=== PATIENT | female | born 1935 | race Caucasian/White ===

== ENCOUNTER 2023-12-28 10:00 | Day surgery (SDC) | payer MEDICARE, MEDICAID ==
[2023-12-27 12:17] LABS: BASOPHILS # (AUTO) 0.1 X10'3 (0-0.2); BASOPHILS % (AUTO) 1.2 % (0-1); EOSINOPHILS # (AUTO) 0.1 X10'3 (0-0.9); EOSINOPHILS % (AUTO) 1.8 % (0-6); HEMATOCRIT 34.8 % (35.0-45.0); HEMOGLOBIN 11.3 g/dl (12.0-16.0); LYMPHOCYTES # (AUTO) 1.5 X10'3 (1.1-4.8); MEAN CORPUSCULAR HEMOGLOBIN 27.4 PG (27.0-31.0); MEAN CORPUSCULAR HGB CONC 32.3 g/dL (33.0-36.5); MEAN CORPUSCULAR VOLUME 84.8 FL (78-98); MEAN PLATELET VOLUME 8.1 FL (7.4-10.4); MONOCYTES # (AUTO) 0.3 X10'3 (0-0.9); MONOCYTES % (AUTO) 6.8 % (2-12); NEUTROPHILS # (AUTO) 3.1 X10'3 (1.8-7.7); NEUTROPHILS % (AUTO) 61.2 % (42-75); PLATELET COUNT 257 X10'3 (140-440); RED BLOOD COUNT 4.11 X10'6 (4.20-5.60); RED CELL DISTRIBUTION WIDTH 15.8 % (11.5-14.5); WHITE BLOOD COUNT 5.1 X10'3 (4.5-11.0)
[2023-12-27 12:28] LABS: ALBUMIN 3.8 G/DL (3.4-5.0); ANION GAP 7 (8-16); BLOOD UREA NITROGEN 24 MG/DL (7-18); BUN/CREATININE RATIO 19.4 (10.0-20.0); CALCIUM 8.6 MG/DL (8.5-10.1); CHLORIDE 105 MMOL/L (99-107); CREATININE 1.24 MG/DL (0.40-0.90); GLUCOSE 103 MG/DL (70-104); POTASSIUM 5.2 MMOL/L (3.5-5.1); SODIUM 140 MMOL/L (135-145); TOTAL CARBON DIOXIDE 27.7 MMOL/L (24-32); eGFR 41 ML/MIN
[2023-12-27 13:35] LABS: APTT 25 SECONDS (22-32); PROTHROMBIN TIME 10.4 SECONDS (9.0-12.0)
[2023-12-28] VITALS (10 sets, daily range): BP systolic 102–146; BP diastolic 51–73; PULSE 99–111; RESP 10–12; TEMP 98.2; O2SAT 93–98
[~2023-12-28 10:00] MED LIST: DOCU-148 PO; LIDOcaine 1% (10mg/ml) 2ml vial ONE; LISI20TA28 PO; METH500T PO; VENL150C58 PO; heparin 1,000unit/ml 10ml vial 10 ML ONE; iohexol 350 MG/ML 50ML vial IV ONE; iohexol 350MG/ML 100ml bottle IV ONE; nitroGLYCERIN 500mcg/5mL D5W 5 ML IV ONE; verapamil 2.5 mg/ml inj IV ONE
[2023-12-28] MEDS ORDERED: DEXTROSE 5% IV SCH (10:20)
[2023-12-28] MEDS ORDERED: WATER IV SCH (10:20)
[2023-12-28] MEDS ORDERED: SODIUM BICARBONATE IV SCH (10:20)
[2023-12-28] MEDS ORDERED: ACET-812 PO (10:57)
[2023-12-28] MEDS ORDERED: midazolam 1 mg/ML 2ml injection ONE (11:06)
[2023-12-28] MEDS ORDERED: fentaNYL/PF 50MCG/1 ML 2ML syringe ONE (11:06)
[2023-12-28] MEDS: diphenhydrAMINE 25mg capsule PO PRN (11:20)
[2023-12-28] MEDS: normal saline 1,000 ML IV SCH (11:20)
[2023-12-28] MEDS: LORazepam 0.5 MG tablet PO PRN (11:20)
[2023-12-28] MEDS: sodium bicarbonate 1meq/ml inj 150 ML in dextrose 5%-water 1,000 ML IV SCH (11:20)
[2023-12-28] MEDS ORDERED: LIDOcaine 1% 30ml preserv. free vial ONE (12:38)
[2023-12-28 13:12] LABS: ISTAT HGB ART 10.9 g/dl (12.0-16.0); ISTAT Hct ART 32 %PCV (35-45); ISTAT O2 SATURATION ARTERIAL 90 % (95-98); ISTAT SOURCE ART
[2023-12-28] MEDS ORDERED: hydrALAZINE 20mg/ml inj. ONE (13:17)
[2024-01-02 15:33] LABS: ISTAT HGB MIX 10.9 g/dl (12.0-16.0); ISTAT Hct MIX 32 %PCV (35-45); ISTAT O2 SATURATION MIX VENOUS 60 % (60-80); ISTAT SOURCE VEN
== END 2023-12-28 18:00 | disposition home or self-care (01) ==
LOC: SSTAY O 10:00
PROVIDERS: ATTEND Internal Medicine Cardiovascular Disease
DX: I35.0 Nonrheumatic aortic (valve) stenosis (principal); I25.10 Atherosclerotic heart disease of native coronary artery without angina pectoris; I10 Essential (primary) hypertension; E78.5 Hyperlipidemia, unspecified; Z87.442 Personal history of urinary calculi; Z79.899 Other long term (current) drug therapy; Z90.49 Acquired absence of other specified parts of digestive tract; Z90.710 Acquired absence of both cervix and uterus; Z98.890 Other specified postprocedural states; Z88.8 Allergy status to other drugs, medicaments and biological substances; Z82.49 Family history of ischemic heart disease and other diseases of the circulatory system; Z80.9 Family history of malignant neoplasm, unspecified
CPT/HCPCS: 36415; 80048; 82803; 84132; 85014; 85025; 85610; 85730; 93005; 93460; 99152; 99153; A6258; C1725; C1751; C1760; C1769; C1894; J0360; J1644; J2003; J2250; J3010; J3490; J7030; J7070; Q0163; Q9967; Z7610; 76937

== ENCOUNTER 2024-02-20 15:31 | Outpatient (CLI) | payer MEDICARE, MEDICAID ==
[~2024-02-20 15:31] MED LIST changes: +ACET-812 PO; -DOCU-148 PO; -LIDOcaine 1% (10mg/ml) 2ml vial ONE; -METH500T PO; -heparin 1,000unit/ml 10ml vial 10 ML ONE; -iohexol 350 MG/ML 50ML vial IV ONE; -iohexol 350MG/ML 100ml bottle IV ONE; -nitroGLYCERIN 500mcg/5mL D5W 5 ML IV ONE; -verapamil 2.5 mg/ml inj IV ONE
[2024-02-20 16:27] VITALS: PULSE 103; RESP 15; O2SAT 97
== END 2024-02-20 23:59 | disposition home or self-care (01) ==
LOC: RT 15:31
PROVIDERS: ATTEND Student in an Organized Health Care Education/Training Program
DX: J45.20 Mild intermittent asthma, uncomplicated (principal)
CPT/HCPCS: 94010; 94729; 94760

== ENCOUNTER 2024-07-23 10:47 | Outpatient (CLI) | payer MEDICARE, MEDICAID ==
[2024-07-23 11:24] LABS: BASOPHILS # (AUTO) 0.1 X10'3 (0-0.2); BASOPHILS % (AUTO) 0.9 % (0-1); EOSINOPHILS # (AUTO) 0.1 X10'3 (0-0.9); HEMATOCRIT 33.8 % (35.0-45.0); HEMOGLOBIN 11.3 g/dl (12.0-16.0); LYMPHOCYTES # (AUTO) 1.6 X10'3 (1.1-4.8); MEAN CORPUSCULAR HEMOGLOBIN 28.3 PG (27.0-31.0); MEAN CORPUSCULAR HGB CONC 33.5 g/dL (33.0-36.5); MEAN CORPUSCULAR VOLUME 84.6 FL (78-98); MEAN PLATELET VOLUME 8.1 FL (7.4-10.4); MONOCYTES # (AUTO) 0.3 X10'3 (0-0.9); MONOCYTES % (AUTO) 5.2 % (2-12); NEUTROPHILS # (AUTO) 3.8 X10'3 (1.8-7.7); NEUTROPHILS % (AUTO) 64.9 % (42-75); PLATELET COUNT 245 X10'3 (140-440); RED CELL DISTRIBUTION WIDTH 14.9 % (11.5-14.5); WHITE BLOOD COUNT 5.8 X10'3 (4.5-11.0)
[2024-07-23 11:38] LABS: APTT 25 SECONDS (22-32); PROTHROMBIN TIME 10.3 SECONDS (9.0-12.0)
[2024-07-23 11:48] LABS: ALANINE AMINOTRANSFERASE 13 U/L (12-78); ALBUMIN 3.8 G/DL (3.4-5.0); ALBUMIN/GLOBULIN RATIO 1.2 (1.1-1.5); ALKALINE PHOSPHATASE 104 IU/L (46-116); ANION GAP 9 (8-16); ASPARTATE AMINO TRANSFERASE 18 U/L (10-37); BILIRUBIN,TOTAL 0.4 MG/DL (0.1-1.0); BLOOD UREA NITROGEN 19 MG/DL (7-18); BUN/CREATININE RATIO 14.8 (10.0-20.0); CALCIUM 8.6 MG/DL (8.5-10.1); CHLORIDE 108 MMOL/L (99-107); CREATININE 1.28 MG/DL (0.40-0.90); GLUCOSE 89 MG/DL (70-104); POTASSIUM 5.1 MMOL/L (3.5-5.1); PRO BRAIN NATRIURETIC PEPTIDE 244 PG/ML (0-450); SODIUM 142 MMOL/L (135-145); TOTAL CARBON DIOXIDE 24.9 MMOL/L (24-32); TOTAL PROTEIN 6.9 G/DL (6.4-8.2); eGFR 39 ML/MIN
--- NOTE | 2024-07-23 12:17 | VASCULAR REPORT ---
Indication: Preoperative Technique: Real-time ultrasound images of the neck vessels with smith-scale, color and wave Doppler we re obtained. Comparison: None Findings: Gqee-mx-uieewtva atherosclerotic plaque. The following peak systolic velocities were recorded in cm/sec: Right internal carotid: 89 Right common carotid: 86 Right external carotid: 67 Right internal/common carotid ratio: 1 Left internal carotid: 75 Left common carotid: 58 Left external carotid: 53 Left internal/common carotid ratio: 1.3 Right vertebral artery: Patent with normal antegrade direction of flow. Left vertebral artery: Patent with normal antegrade direction of flow. Impression: 1. No hemodynamically significant stenosis by velocity criteria. 2. Fwcz-ks-kpbujbok atherosclerotic plaque.
--- NOTE | 2024-07-23 12:24 | RADIOLOGY REPORT ---
DI CHEST,TWO VIEWS, HISTORY: TAVR COMPARISON: None None TECHNICAL DATA: 1 view of the chest was obtained. FINDINGS: Lines and tubes: None Cardiomediastinal silhouette: normal Pulmonary vasculature: normal Lung expansion: normal Lung airspace: normal Lung interstitium: normal Pleura: normal Pneumothorax: no Bones: Right shoulder hardware is seen. Other: Right hemidiaphragm eventration is seen. IMPRESSION: No acute intrathoracic abnormality.
--- NOTE | 2024-07-24 17:15 | RADIOLOGY REPORT ---
Procedure: CT CTA TAVR Reason for study/Clinical History: Chest pain, evaluate for dissection. Comparison Study: None Exam Date: 07/23/2024 01:07 PM TECHNIQUE: Multiplanar reformatted images were generated from volumetric data acquired on a multidetector CT [facility]. Cardiac gating was utilized. Arterial phase images were obtained through the chest, abdomen and pelvis following intravenous administration of contrast material. 100 mL visipaque [address] dose reduction techniques were utilized. 3-D reconstructions were performed on an independent work station. Radiation Dose Information: CT Dose: CTDI volume is 65 mGy. Dose-length product is 2417 mGy*cm FINDINGS: Vascular: Aortic measurements: Aortic annulus: 26.4 x 21.3 mm Sinus of valsalva: right cusp 31.4 mm, left cusp 30.3 mm, non-coronary cusp 30.8 mm Right coronary distance: 13.6 Left coronary distance: 10.3 ST junction 25.9 mm Ascending aorta 33.6 mm Aortic arch 26 mm Descending aorta 26 mm Aortic hiatus 22 mm Upper abdominal aorta 20 mm Minimal abdominal aorta 13 mm Right common iliac 9.37 mm, tortuosity index 1.14 Left common iliac 8.72 mm, tortuosity index 1.09 There is normal caliber of aorta. No aortic dissection. Aortic arch anatomy is conventional. There is conventional coronary artery anatomy. Scattered calcified atherosclerotic plaque. No central pulmonary embolism. There is normal dimension of the main pulmonary artery. Heart is normal. There are no intracardiac filling defects. Trace pericardial effusion. Mediastinum: There is no significant intrathoracic or axillary lymphadenopathy by CT size criteria. Lungs: Atelectasis and scarring in the lung bases. Pleura: No effusion or pneumothorax. Chest wall: No acute abnormality. Moderate size sliding-type hiatal hernia. Abdomen and Pelvis: Liver: Normal in appearance. Gallbladder: Surgically absent Spleen: Normal in appearance. Pancreas: Cyst in the uncinate process of the pancreas measuring up to 14 mm. Adrenals: Normal in appearance. Kidneys: Calculus in the right renal pelvis measuring up to 12 mm associated with iice-ay-nbchtwsn ri ght hydronephrosis. Bowel: Nonspecific gaseous distention of bowel. Peritoneum: Free fluid in the pelvis. Lymph nodes: Subcentimeter retroperitoneal and chain lymph nodes are noted. Pelvic structures: No pelvic mass. Bones: Normal in appearance. IMPRESSION: 1. TAVR planning with vascular measurements as described above. 2. Moderate size sliding-type hiatal hernia. Cysts in the uncinate process of the pancreas. This can be further evaluated with MRI of the abdomen with contrast. Mildly obstructing calculus in the right renal pelvis associated with zvne-gk-gkkvziop right hydronephrosis. Urology evaluation is recommende d. Nonspecific gaseous distention of bowel. Nonspecific lymphadenopathy. Clinical correlation and con tinued follow-up is recommended. HS:Y
== END 2024-07-23 23:59 | disposition home or self-care (01) ==
LOC: RAD 10:47
PROVIDERS: ATTEND Internal Medicine Cardiovascular Disease
DX: Z01.818 Encounter for other preprocedural examination (principal); I25.10 Atherosclerotic heart disease of native coronary artery without angina pectoris; I35.0 Nonrheumatic aortic (valve) stenosis; R06.02 Shortness of breath; Q79.1 Other congenital malformations of diaphragm; J98.11 Atelectasis; K44.9 Diaphragmatic hernia without obstruction or gangrene; K86.2 Cyst of pancreas; J98.4 Other disorders of lung; I70.90 Unspecified atherosclerosis; N13.2 Hydronephrosis with renal and ureteral calculous obstruction
CPT/HCPCS: 36415; 71046; 71275; 74174; 75572; 80053; 83880; 85025; 85610; 85730; 93880; Q9967

== ENCOUNTER 2024-07-24 14:48 | Outpatient (CLI) | payer MEDICARE, MEDICAID ==
[~2024-07-24] VITALS: Ht 152.4 cm; Wt 75.2 kg
[~2024-07-24 14:48] MED LIST changes: +IODIXANOL 320 MG/ML INFUS..BTL 100ML IV ONE
[2024-07-24 15:05] VITALS: BP 139/76; PULSE 93; RESP 14; TEMP 95.3; O2SAT 94
--- NOTE | 2024-07-24 19:33 | CONSULTATION REPORT ---
History of Present Illness Providers to CC CC: BRITTANY TERRELL MD ~ Refering MD: Dr. Terrell History of Present Illness A Very pleasant 89yo woman with Hypertension, Breast cancer(status post radiation), Severe Symptomatic Aortic Stenosis here to be evaluated in the TAVR clinic. 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 She currently resides in a Condo and states that over the last one year she has noticed increased shortness of breath. She used to be able to walk up the stairs to her home without issues, now has to stop detention to catch her breath. 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 She denies any chest pain, syncope, dizziness/lightheadedness, bleeding, LE e juan. Allergies: Coded Allergies: cephalexin (Verified Allergy, Intermediate, redness and swelling, 02/06/23) Active prescriptions Tylenol Lisinopril 20mg QD Venlafaxine ER Home Medications Home Medications Active Reported Tylenol Extra Strength (Acetaminophen) 500 Mg Tablet 1 Tablet PO Venlafaxine Hcl Er (Venlafaxine Hcl) 150 Mg Cap.sr.24h 1 Cap PO DAILY with food Lisinopril 20 Mg Tablet 1 Tab PO DAILY Past Medical History Medical History Comment 1. Severe, Symptomatic Aortic Stenosis 2. Hypertensive heart disease 3. Breast CA with prior radiation, ~ 2017 Past Surgical History Surgical History Comment Denies any prior heart/lung surgeries Past Family History Family History: Patient reports no known family medical history. Past Social History Social History Comment Denies tobacco or alcohol abuse Physical Exam Last Vital Signs Recorded: Temperature: 95.3, Source: Temporal, Heart Rate: 93, Respiratory Rate: 14, BP: 139/76, Pulse Oximetry: 94, Weight: 75.200 General Appearance: alert, no apparent distress Respiratory: lungs clear Cardiovascular: regular rate, rhythm, systolic murmur (III/ SM RUSB/LUSB) Peripheral Pulses: 2+ radial (R), 2+ radial (L) Gastrointestinal: bowels sounds present Extremities: no edema Neurologic: oriented x4 Psychiatric: normal mood/affect Review of Systems ROS ROS Comments: A 14-point review of systems is positive as above. The rest of the review of systems has been done and found to be unrevealing. Results Results/Orders Results/Orders Hg 11.3 HCt 33.8, Cr 1.28 Echocardiogram: LVEF 70%, PV 4.0 m/s, MG 39 mmHg, NOEIM 0.93cm2. Mild AI. Coronary Angiogram: No significant obstructive CAD Carotid Ultrasound: No obstructive carotid disease EKG: Sinus tach, QRS 76ms CT TAVR: Large Caliber vessels amenable to transfemoral transcatheter aortic valve replacement. Sinuses are large enough, left coronary artery ostium is 9mm above the annulus. Assessment/Plan Problems/Diagnosis: (1) Aortic stenosis Assessment & Plan: A Very pleasant 89yo woman with Hypertension, Breast cancer(status post radiation), Severe Symptomatic Aortic Stenosis here to be evaluated in the TAVR clinic. She has severe, symptomatic aortic stenosis with NYHA Class III symptoms of dyspnea on exertion. Patient appears to be a good candidate for a transfemoral transcatheter aortic valve replacement She does have a low left coronary artery, 9mm above the annulus, however, the left sinus is 32mm with an STJ of [id number](18mm above the annulus). --Will plan for a 23mm valve via either femoral approach(higher left PRECISION GRINDER bifurcation), to be scheduled soon. Dr. Terrell, We thank you for allowing us the opportunity to help with the patient. They will see you back in the office shortly. RAY GUERRERO MD Jul 24, 2024 19:33
== END 2024-07-24 23:59 | disposition home or self-care (01) ==
LOC: TAVR 14:48
PROVIDERS: ATTEND Internal Medicine Cardiovascular Disease
DX: I35.0 Nonrheumatic aortic (valve) stenosis (principal); R06.02 Shortness of breath; I65.29 Occlusion and stenosis of unspecified carotid artery
CPT/HCPCS: Q9967

== ENCOUNTER 2024-08-28 07:23 | Inpatient (IN) | payer MEDICARE, MEDICAID ==
--- NOTE | 2024-08-22 14:22 | ELECTROCARDIOGRAPH REPORT ---
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 ROBERTO Cameron Measurements Intervals [place] Rate: 77 P: 7 PA: 146 QRS: 23 QRSD: 80 T: 8 QT: 312 QTc: 353 Interpretive Statements Sinus rhythm Electronically Signed On 08-23-2024 12:31:[address] ROBERTO Cameron Please click the below link to view image of tracing.
--- NOTE | 2024-08-22 14:34 | RADIOLOGY REPORT ---
CHEST RADIOGRAPH Indication: TAVR SOB Technique: Frontal and lateral view of the chest was obtained Comparison: DI CHEST,TWO VIEWS on DOS: 07/23/24 FINDINGS: Lines and Tubes: None Lungs: Clear Pleura: No effusion. No pneumothorax. Cardiomediastinal contours: Large hiatal hernia Bones: Unremarkable IMPRESSION: Large hiatal hernia.
[2024-08-22 14:48] LABS: LEUKOCYTE ESTERASE ,URINE MODERATE (Neg); MEAN PLATELET VOLUME 9.0 FL (7.4-10.4); NITRITES, URINE POSITIVE (Neg); OCCULT BLOOD,URINE LARGE (Neg); PRE OP PLATELET COUNT 207 X10'3 (140-440)
[2024-08-22 14:50] LABS: PRE OP HEMATOCRIT 33.1 % (35.0-45.0); PRE OP WHITE BLOOD COUNT 4.8 10'3 (4.8-10.8); RED CELL DISTRIBUTION WIDTH 15.1 % (11.5-14.5); UA COLLECTION TYPE NON-SPECIFIED
[2024-08-22 14:58] LABS: PRE OP INR 1.0 INR; PRE OP PARTIAL THROMB. TIME 25.0 SECONDS (22-32); PRE OP PROTIME 10.3 SECONDS (9.0-12.0)
[2024-08-22 15:01] LABS: CREATININE 1.23 MG/DL (0.40-0.90); PRE OP ALT 17 U/L (30-65); PRE OP ANION GAP 5 (8-16); PRE OP AST 16 U/L (10-37); PRE OP BILIRUB, TOTAL 0.4 MG/DL (0.0-1.0); PRE OP GLUCOSE 87 MG/DL (70-104); PRE OP POTASSIUM 5.0 MMOL/L (3.4-5.1); PRE OP SODIUM 138 MMOL/L (135-145); TOTAL CARBON DIOXIDE 29.3 MMOL/L (24-32); eGFR 41 ML/MIN
[2024-08-22 15:02] LABS: PRE OP HEMOGLOBIN 11.0 g/dL (12.0-16.0)
[2024-08-22 15:15] LABS: SQUAMOUS EPITHELIAL CELL,UR MODERATE /LPF (FEW); WBC CLUMPS,URINE MODERATE /HPF (NEGATIVE)
[~2024-08-28] VITALS: Ht 152.4 cm; Wt 75.8 kg
[2024-08-28] VITALS (16 sets, daily range): BP systolic 90–144; BP diastolic 49–87; PULSE 72–89; RESP 13–18; TEMP 97.1–98; O2SAT 91–100
[2024-08-28] MEDS: nitroPRUSSIDE (NIPRIDE) (200MCG/ML) 100ML Drip IV SCH (05:30)
[2024-08-28] MEDS: phenylephrine inj 50 MG in normal saline 250ml IV solN IV SCH (05:30)
[2024-08-28] MEDS: DOCUMENT DATE & TIME OF BETA-BLOCKER PO ONE (05:30)
[~2024-08-28 07:23] MED LIST changes: +CARV6.253 PO; -IODIXANOL 320 MG/ML INFUS..BTL 100ML IV ONE; +ROSU40TA PO; +SULF1TAB49 PO; +ondansetron/PF 4mg/2ml inj IV PRN; +protamine sulfate 10mg/ml inj. ONE
[2024-08-28] MEDS: ringers solution, lacted 1,000 ML IV SCH ×2 (08:13→08:50)
[2024-08-28] MEDS: VANCOMYCIN/H2O 1.5g/300mL PB 300 ML IV ONE (08:13)
[2024-08-28] MEDS ORDERED: morphine 4 MG/ML inj SYRINge IV PRN (08:50)
[2024-08-28] MEDS ORDERED: labetalol 20mg/4ml (5mg/ml) syringe IV PRN ×2 (08:50→11:40)
[2024-08-28] MEDS ORDERED: hydrALAZINE 20mg/ml inj. IV PRN ×2 (08:50→11:40)
[2024-08-28] MEDS ORDERED: LIDOcaine 1% 30ml preserv. free vial ONE (10:05)
[2024-08-28] MEDS ORDERED: heparin 1,000 UNITS/NS 500ml 1,500 ML ONE (10:05)
[2024-08-28] MEDS ORDERED: non-formulary drug (Acetaminophen (Tylenol Extra Strength) 1 TABLET) PO PRN (10:25)
[2024-08-28] MEDS ORDERED: morphine 10mg/ml inj. ONE (10:35)
[2024-08-28] MEDS ORDERED: LIDOcaine 1%/PF 5ML 10 MG/ML VIAL ONE (10:41)
[2024-08-28] MEDS ORDERED: propofol inj 20 ML IV ONE (10:41)
[2024-08-28] MEDS ORDERED: heparin 1,000unit/ml 10ml vial 10 ML ONE (10:42)
[2024-08-28] MEDS ORDERED: desflurane 240ml liquid inh. IH ONE (10:48)
[2024-08-28] MEDS ORDERED: ePHEDrine 50MG/ML INJ. ONE (11:09)
[2024-08-28] MEDS ORDERED: potassium Cl 20mEq/100mL bag 100 ML IV PRN (11:40)
[2024-08-28] MEDS ORDERED: potassium Cl 20 mEq SR tablet PO PRN (11:40)
[2024-08-28] MEDS ORDERED: magnesium sulf-water 2g/50mL 50 ML IV PRN (11:40)
[2024-08-28] MEDS ORDERED: ondansetron/PF 4mg/2ml inj IV PRN (11:40)
[2024-08-28] MEDS ORDERED: potassium CL 10mEq/100ml bag 100 ML IV PRN (11:40)
[2024-08-28] MEDS ORDERED: ALPRAZolam 0.25mg tablet PO PRN (11:40)
[2024-08-28] MEDS ORDERED: potassium Cl 40MEQ/1/2NS 520ml 520 ML IV PRN (11:40)
[2024-08-28] MEDS ORDERED: pantoprazole 40mg Tablet.DR PO PRN (11:40)
[2024-08-28] MEDS ORDERED: potassium Cl 40MEQ/270ML bag 250 ML IV PRN (11:40)
[2024-08-28] MEDS ORDERED: magnesium sulf-water 4G/100mL 100 ML IV PRN (11:40)
[2024-08-28] MEDS ORDERED: docusate sod 100mg capsule PO PRN (11:40)
[2024-08-28] MEDS ORDERED: HYDROcodone/acetaminophen 5mg/325mg tablet PO PRN (11:40)
--- NOTE | 2024-08-28 11:45 | OPERATIVE REPORT ---
Operative Report Providers to CC CC: BRITTANY TERRELL MD ~ Date of Procedure: Aug 28, 2024 Pre-Operative Diagnosis: Severe Aortic Stenosis Post-Operative Diagnosis SAME as PRE-Op Procedure Performed 1. Ultrasound-guided access, bilateral femoral vessels. 2. Bilateral femoral angiography. 3. Ascending aortography. 4. Temporary transvenous pacer to the RV apex. 5. Balloon Aortic Valvuloplasty with an 18mm balloon 6. Placement of a 23+1 mm Rodriguez S3 Resilia valve. Surgeon: Ray Abarca MD Critical Care Physician Assistant MD Dr. Raymon Wolff MD Anesthesiologist: Adriel Villela Type of Anesthesia: Other Findings: Severe Aortic Stenosis Complications None Prosthetics\Implants used: Rodriguez 23+1mm S3 Resilia Estimated Blood Loss: Minimal Specimen Removed: None Description of Procedure: The patient was brought to the labor commissioner in a fasting state. They underwent MAC anesthesia. Ultrasound was used to guide access to the bilateral femoral vessels, 7-Slovenian sheath, left femoral artery, 6-Slovenian sheath, right femoral artery and left femoral vein. Bilateral femoral angiograms were obtained. Heparin was given to maintain an ACT over 250 seconds. A single Perclose devices was placed on the right. We upsized to an 8-Slovenian sheath. Two pigtail catheters placed in the ascending aorta. Ascending aortography done to determine the angle of deployment. Temporary transvenous pacer to the RV apex and confirmed capture. We upsized an 8-Slovenian sheath to a 14-Slovenian Rodriguez eSheath on the right. We crossed the aortic valve using a straight stiff exchange length Terumo wire supported by a 6-Slovenian AL1 catheter. LV AO pressures were recorded. A CancerIQ extra support wire was placed in the left ventricle. Next, an 18mm balloon was brought into position and under rapid v entricular pacing, it was inflated. Subsequently, A 23(+1) mm Rodriguez S3 Resilia valve was brought to position and under rapid right ventricular pacing was deployed. Post-procedure, there was no AI and no residual . Guidewires and balloons were removed at this time. The temporary pacer was removed. The 14- Slovenian Rodriguez eSheath was removed and the Perclose device tied with adequate hemostasis. The arterial sheath on the left was removed and a single Perclose tied. The venous sheath on the left was removed and a single Angioseal used for hemostasis. Protamine was given to reverse the effects of heparin. The patient was stable post-procedure. Good pulses in the legs and no evidence of bleeding, transferred to the PACU in stable condition. HEMODYNAMICS: Pre: LV: 141/15 mmHg LVEDP: 26mmHg Ao: 109/55, MAP 75mmHg Post: LV: 123/22 mmHg LVEDP: 32 mmHg Ao: 123/56, MAP 83mmHg RESULTS: 1. Successful balloon aortic valvuloplasty with an 18 mm balloon. 2. Successful placement of a 23 (+1)mm Rodriguez S3 Resilia valve, right transfemoral approach, two perclose devices. ASA 81mg QD 3. Hypertension: Resume if blood pressure remains stable 4. Acute on chronic diastolic heart failure, LVEDP 26mmHg Patient will be watched in the recovery area until stable, then transferred to telemetry at that time. RAY ABARCA MD Aug 28, 2024 11:45
[2024-08-28] MEDS ORDERED: LIDOCAINE 2%/EPI 1:100,000 inj. Multi-dose 20 ML VIAL ONE (11:51)
--- NOTE | 2024-08-28 12:09 | ELECTROCARDIOGRAPH REPORT ---
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 ROBERTO Cameron Measurements Intervals [place] Rate: 83 P: 63 [place]: 158 QRS: -35 QRSD: 149 T: 97 QT: 423 QTc: 497 Interpretive Statements Sinus rhythm Left bundle branch block Electronically Signed On 08-29-2024 17:31:[address] ROBERTO Cameron Please click the below link to view image of tracing.
[2024-08-28] MEDS: normal saline 1000ml 1,000 ML IV SCH (12:18)
[2024-08-28] MEDS: sod chloride 0.9% 10ml flush syringe IV SCH (16:30)
--- NOTE | 2024-08-28 16:53 | CARDIOLOGY REPORT ---
APPROVED REPORT EXAM: Focused, limited intraprocedural transthoracic 2D, spectral and color flow Doppler echocardiogr am during TAVR deployment. Patient Location: [facility] Blood Pressure: 137/68 mmHg Heart Rate: 81 bpm Rhythm: SINUS Indications SEVERE AORTIC STENOSIS 18 mm TRUE balloon pre-dilatation 23 mm Rodriguez Fina 3 Ultra RESILIA Bioprosthetic TAVR CORONARY ARTERY DISEASE HYPERTENSION Quarryman: Allan Cameron MD / Interventionalist: Dayanna Abarca MD and Xavi Stephens MD. / Surgeon: America Baldwin MD. / Device rep: Torin Montemayor ELS Previous echo: 07/08/24 AD BVC (EF 70-75%, NOEMI: 0.93, pkV 4.0, grad 65/39, LVOT 2.2, tr TR, tr PI, mMR , Enedelia) LEFT VENTRICLE Small LV size and function. At least moderate concentric hypertrophy. LVEF is 70-75%. RIGHT VENTRICLE RV is normal size and function. RVSP is estimated at 29 mmHg. ATRIA LA appears at least moderately dilated. AORTIC VALVE Trileaflet AV appears severely calcified with significant stenosis demonstrated by reduced excursion and increased transvalvular and ascending aorta turbulance. NOEMI is measured at 0.6 cmsq. Peak / mean gradients of 88 / 46 mmHG. Peak velocity is measured at 4.67 m/sec. PRE DILATATION: 18 mm TRUE BAV ba randall. POST DEPLOYMENT (LOOP: 57): 23 mm Rodriguez Fina 3 Ultra Resilia bioprosthetic TAVR appears we ll seated with normal function. Trace (1+) paravalvular leak present at 12 o'clock and trace at 7 o'c lock in TTE SAX BASE. NOEMI is measured at 3.05 cmsq. Peak / mean gradients of 14 / 7 mmHG. Peak veloci ty is measured at 1.90 m/sec. MITRAL VALVE Mild MV annular calcification without stenosis. Mild regurgitation. TRICUSPID VALVE TV appears structurally normal with trace regurgitation. PULMONIC VALVE Normal PV without stenosis, physiologic insufficiency. GREAT VESSELS Aortic root is normal in size. Ascending aorta is normal in size. PERICARDIUM Trace circumferential pericardial effusion without hemodynamic compromise.
[2024-08-28] MEDS: normal saline 500ml IV soln 500 ML IV ONE (16:54)
[2024-08-28] MEDS: sulfamethoxazole/trimethoprim DS (800/160mg) tablet PO SCH (20:06)
[2024-08-28] MEDS: vancomycin/NS 1 GM ADD-VANTAGE 250 ML IV SCH (20:06)
[2024-08-28] MEDS: ondansetron/PF 4mg/2ml inj IV PRN (20:07)
[2024-08-29 02:00] VITALS: BP 104/52; PULSE 81; RESP 18; TEMP 97.6; O2SAT 94
[2024-08-29 06:00] VITALS: TEMP 97.6
[2024-08-29 06:45] LABS: MEAN PLATELET VOLUME 9.0 FL (7.4-10.4); RED CELL DISTRIBUTION WIDTH 14.5 % (11.5-14.5)
[2024-08-29 07:00] LABS: CREATININE 1.38 MG/DL (0.40-0.90); PRO BRAIN NATRIURETIC PEPTIDE 802 PG/ML (0-450); TOTAL CARBON DIOXIDE 24.6 MMOL/L (24-32); eCRCL 20 ML/MIN; eGFR 36 ML/MIN
[2024-08-29] MEDS: venlafaxine XR 75mg capsule (Q24H) PO SCH (07:11)
[2024-08-29 07:17] VITALS: BP 117/56; PULSE 81; RESP 16; O2SAT 99
--- NOTE | 2024-08-29 08:16 | RADIOLOGY REPORT ---
CHEST RADIOGRAPH Indication: s/p TAVR Technique: Single frontal view of the chest was obtained Comparison: DI CHEST,SINGLE VIEW on DOS: 02/10/23 FINDINGS: Lines and Tubes: None Lungs: Elevated right hemidiaphragm. No focal consolidation. Pleura: No effusion. No pneumothorax. Cardiomediastinal contours: Hiatal hernia. Stable Cardiovascular silhouette. TAVR. Bones: No acute osseous abnormality. IMPRESSION: 1. TAVR. Stable cardiomegaly.
--- NOTE | 2024-08-29 09:30 | ELECTROCARDIOGRAPH REPORT ---
[facility] Test Date: 2024-08-29 Test Time: 09:28:55 Pat Name: SEBASTIAN CARPIO Department: 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 ROBERTO Cameron Measurements Intervals [place] Rate: 79 P: -43 VT: 135 QRS: 23 QRSD: 83 T: 19 QT: 341 QTc: 391 Interpretive Statements Sinus rhythm Borderline low voltage, extremity leads Electronically Signed On 08-29-2024 17:32:[address] ROBERTO Cameron Please click the below link to view image of tracing.
[2024-08-29] MEDS ORDERED: ASPI81TA53 PO (15:28)
--- NOTE | 2024-08-29 15:42 | DISCHARGE SUMMARY ---
Discharge Summary Providers to CC ~ Discharge Summary Admission Diagnosis: Severe Aortic Stenosis Hospital Course DATE OF ADMISSION: 12/29/24 DATE OF DISCHARGE: 12/30/24 Discharge Diagnosis\Comment: Severe aortic stenosis status post TAVR Hypertension Acute on chronic diastolic heart failure with LVEDP 26 mm of mercury Urinary tract infection present on admission Operations\Procedures: 1. Ultrasound-guided access, bilateral femoral vessels. 2. Bilateral femoral angiography. 3. Ascending aortography. 4. Temporary transvenous pacer to the RV apex. 5. Balloon Aortic Valvuloplasty with an 18mm balloon 6. Placement of a 23+1 mm Rodriguez S3 Resilia valve. Consultants: No consultants Complications: No complications Condition on DC: Stable New Medications: Aspirin (Children's Aspirin) 81 Mg Tab.chew 81 MG PO Q24H@0830 for 30 Days, #30 TAB.CHEW Continued Medications: Acetaminophen (Tylenol Extra Strength) 500 Mg Tablet 1 TABLET PO DAILY PRN for pain, TABLET Carvedilol (Carvedilol) 6.25 Mg Tablet 2 TAB PO BID, TAB 0 Refills Lisinopril (Lisinopril) 20 Mg Tablet 1 TAB PO DAILY Rosuvastatin Calcium* (Crestor*) 40 Mg Tablet 1 TAB PO DAILY Sulfamethoxazole/Trimethoprim (Bactrim Ds Tablet) 800 Mg-160 Mg Tablet 1 TAB PO BID for 10 Days, #20 TAB Venlafaxine Hcl (Venlafaxine Hcl Er) 150 Mg Cap.sr.24h 1 CAP PO DAILY with food Discharge Summary: This is an 89-year-old female with history of aortic stenosis, cancer of the breast, hypertension. Presented for planned TAVR procedure. Underwent placement of a 23+ 1 mm Rodriguez S3 resilient valve. Tolerated the procedure well. Has been up and ambulatory. No complaints of chest pain or pressure. No shortness a breath. No dizziness, lightheadedness or syncope. Postoperative testing was reviewed by Dr. Daryl Abarca and Dr. Luis F Stephens. She was deemed stable for discharge home. Physical exam prior to discharge: General: Awake, alert, oriented. No apparent distress Neck: Supple. Normal range of motion. No JVD Respiratory: Lungs are clear to auscultation bilaterally. No respiratory distress. Chest: Normal shape and size. No accessory muscle use. Cardiovascular: Regular rate and rhythm. S1-S2. No murmur, gallop, rub. Gastrointestinal: Abdomen is soft. Nontender to palpation. Bowel sounds present. Extremities: No lower extremity edema, cyanosis or clubbing. Femoral cath sites with dressings clean dry and intact. No ecchymosis or swelling. No hematoma. Dorsalis pedis pulses are palpable. Neurologic: Alert and oriented x4. Nonfocal Psychiatric: Normal mood and affect. Skin: Normal color. Warm and dry. Plan: Patient is being discharged home in stable condition. She will follow up as scheduled. She will continue antibiotics for her urinary tract infection that was present on admission. *Problems/Diagnosis: (1) Hypertension (2) UTI (urinary tract infection) (3) Acute on chronic diastolic heart failure (4) Aortic stenosis Total Time Spent on D/C: Up to 30 Minutes Counseling Services Smoking & Tobacco Cessation: N/A Supervising MD Co-signing Provider: RONALDO Brooks NP Aug 29, 2024 15:42
--- NOTE | 2024-08-30 12:02 | CARDIOLOGY REPORT ---
APPROVED REPORT EXAM: Limited 2D, Doppler, and color-flow Echocardiogram. Patient Location: [facility] Blood Pressure: 104/52 mmHg Heart Rate: 82 bpm Indications ONE DAY FOLLOW UP 23 mm Rodriguez Fina 3 Ultra RESILIA Bioprosthetic TAVR SALES AND SERVICE REPRESENTATIVE: Jorge Cameron MD Previous ECHO: 08/28/24, [facility], EF: 70-75; NOEMI: 3.05; GRAD: 14 / 7; PKV: 1.90; trace paravalv leak at 12 & 7 in TTE SAX BASE; modLAE; mMR 2D Dimensions IVSd 1.1 (0.7-1.1cm) LVDd 4.5 cm PWd 1.0 (0.7-1.1cm) IVSs 1.6 (0.8-1.2cm) LVDs 2.7 (2.5-4.0cm) PWs 1.5 (0.8-1.2cm) LVOT Diameter 2.30 (1.8-2.4cm) LVEF(%) 69.4 (>50%) IVC 16.67 mmFS (%) 38.9 % SV 62.6 ml CO 5.1 L/min M-Mode Dimensions Aortic Root 2.49 (2.2-3.7cm) Aortic Cusp Exc 2.96 (1.5-2.0cm) Aortic Valve AoV Peak Ludwig. 259.9 cm/s AoV VTI 39.8 cm AO Peak GR. 27.0 mmHg AO Mean GR. 14 mmHg LVOT VTI 29.06 cm LVOT Peak Ludwig. 152.7 cm/s NOEMI(VTI)/BSA 3.05 cm2/m2 NOEMI (VTI) 3.05 cm2 AI P 1/2 Time 660 ms Tricuspid Valve TR P. Velocity 312 cm/s RAP ESTIMATE 10 mmHg TR Peak Gr. 39 mmHg RVSP 49 mmHg LEFT VENTRICLE Normal LV size and wall thickness. Overall systolic function is normal. Overall LVEF is 70%. RIGHT VENTRICLE RV is normal size and function. Estimated PA systolic pressure of 49 mm of Hg ATRIA Left atrium appears moderately dilated. AORTIC VALVE 23 mm Rodriguez Fina 3 Ultra Resilia bioprosthetic TAVR appears well seated with normal function. Mil d paravalvular leak present at 12 o'clock in Apical 3 and 5 views. NOEMI is measured at 3.05 cmsq. Peak / mean gradients of 27 / 14 mmHG. Peak velocity is measured at 2.60 m/sec. TRICUSPID VALVE The tricuspid valve is normal in structure with mild regurgitation. PERICARDIUM Moderate pericardial effusion present without hemodynamic compromise. Other Information Study Quality: Adequate Conclusion Overall LVEF is 70%. RV is normal size and function. Estimated PA systolic pressure of 49 mm of Hg 23 mm Rodriguez Fina 3 Ultra Resilia bioprosthetic TAVR appears well seated with normal function. Mi ld paravalvular leak present at 12 o'clock in Apical 3 and 5 views. NOEMI is measured at 3.05 cmsq. P eak / mean gradients of 27 / 14 mmHG. Peak velocity is measured at 2.60 m/sec. The tricuspid valve is normal in structure with mild regurgitation. Moderate pericardial effusion present without hemodynamic compromise. There appears to be a thrombus in the pericardial fluid. Recommend clinical correlation
== END 2024-08-29 16:02 | disposition home or self-care (01) | DRG 266 ==
LOC: PAS IN 07:23 → PCU 3S 13:02
PROVIDERS: ADMIT Internal Medicine Cardiovascular Disease; ATTEND Internal Medicine Cardiovascular Disease
PROC: B41D1ZZ Fluoroscopy of Aorta and Bilateral Lower Extremity Arteries using Low Osmolar Contrast (ICD-10-PCS; 2024-08-28)
PROC: 02RF38Z Replacement of Aortic Valve with Zooplastic Tissue, Percutaneous Approach (ICD-10-PCS; principal; 2024-08-28 10:30)
DX: I35.0 Nonrheumatic aortic (valve) stenosis (principal); Z00.6 Encounter for examination for normal comparison and control in clinical research program; I50.33 Acute on chronic diastolic (congestive) heart failure; N39.0 Urinary tract infection, site not specified; I11.0 Hypertensive heart disease with heart failure; Z85.3 Personal history of malignant neoplasm of breast; Z88.1 Allergy status to other antibiotic agents
CPT/HCPCS: 33361; 36415; 71045; 71046; 80053; 81001; 82948; 83735; 83880; 85025; 85347; 85610; 85730; 86885; 86900; 86901; 86920; 87077; 87081; 87088; 87186; 93005; 93308; A4615; A4618; A6258; A6449; C1756; C1760; C1769; C1894; G0378; J1644; J2003; J2274; J2371; J2405; J2704; J2720; J3373; J3375; J3490; J7030; J7040; J7050; J7120; Q9967

== ENCOUNTER 2024-08-31 23:35 | Emergency (ER) | payer MEDICARE, MEDICAID ==
[~2024-08-31] VITALS: Ht 152.4 cm; Wt 76.7 kg
[~2024-08-31 23:35] MED LIST changes: +ASPI81TA53 PO; -ondansetron/PF 4mg/2ml inj IV PRN; -protamine sulfate 10mg/ml inj. ONE
[2024-09-01 00:31] LABS: MEAN PLATELET VOLUME 9.0 FL (7.4-10.4); RED CELL DISTRIBUTION WIDTH 14.5 % (11.5-14.5)
[2024-09-01 00:44] LABS: CREATININE 1.22 MG/DL (0.40-0.90); TOTAL CARBON DIOXIDE 20.6 MMOL/L (24-32); eCRCL 23 ML/MIN; eGFR 42 ML/MIN
[2024-09-01 02:18] LABS: UA COLLECTION TYPE CLN CATCH MIDSTREAM
[2024-09-01 02:24] LABS: SQUAMOUS EPITHELIAL CELL,UR FEW /LPF (FEW)
[2024-09-01] MEDS ORDERED: iohexol 300mg/ml 100ml inj. ONE (04:30)
--- NOTE | 2024-09-01 05:21 | RADIOLOGY REPORT ---
Exam: CT CT ABDOMEN PELVIS W/ IV CONTRAST History: flank pain COMPARISON: CT CT ABDOMEN PELVIS on DOS: 02/07/23, CT CT ABDOMEN PELVIS on DOS: 02/06/23 Technique: Multidetector spiral CT of the abdomen and pelvis was performed from lung bases to pubic s ymphysis. Intravenous contrast was administered during this examination. Noncontrast and portal venou s imaging was obtained. Axial, coronal and sagittal multiplanar reformats were performed by the techn ologist on a separate workstation. Radiation Dose : 1. Abdomen/Pelvis: CTDIvol 28 mGy, DLP 2625 mGy*cm. Findings: Lung Bases: No acute or significant lung base finding. Normal heart size. No pleural or pericardial effusion. Liver: The liver is normal in size. No focal lesions. Normal hepatic vascular enhancement. Gallbladder and Biliary Tree: Gallbladder is surgically absent. Spleen: Unremarkable Pancreas: The pancreas is normal in appearance without focal lesions or abnormal enhancement. Adrenal Glands: Unremarkable Kidneys: Left kidney is unremarkable. Right proximal ureteral stone measures 1.9 cm (HU 1120). Mod erate right hydronephrosis. Bladder: Unremarkable Bowel: Small to moderate hiatal hernia. Diverticulosis. The appendix is not visualized; however, no s econdary findings of acute appendicitis identified. Ascites: Absent Lymphadenopathy: No mesenteric, retroperitoneal or periportal lymphadenopathy. Abdominal Wall and Mesentery: Unremarkable. Vasculature: The visualized abdominal aorta is normal in size and caliber. Abdominal and pelvic vess els demonstrate normal enhancement. Pelvic Organs: Hysterectomy Musculoskeletal: No aggressive focal bony lesions, acute fractures or dislocation. Degenerative calabrese es of the spine. IMPRESSION: Moderate right hydroureteronephrosis with obstructing stone in the proximal right ureter measuring 1 .9 cm.
--- NOTE | 2024-09-01 05:47 | Physician Documentation ---
History of Present Illness ~ Chief Complaint: Flank Pain Stated Complaint: FLANK PAIN Time Seen by MD: 23:54 Primary Medical Doctor: Dr. Cameron HPI 89 year old female recently s/p TAVR procedure performed here, reports some bloody urine today as well as R flank pain radiating to her R groin. She has a known large kidney stone on the right side that reportedly will require intervention but the plan was to take care of this after her TAVR. She was recently treated for a UTI with bactrim. She denies fevers, N/V/D. Medication Reconciliation Allergies: Coded Allergies: cephalexin (Verified Allergy, Intermediate, redness and swelling, 02/06/23) Scheduled Aspirin (Children's Aspirin), 81 MG PO Q24H@0830 Carvedilol (Carvedilol), 2 TAB PO BID, (Reported) Lisinopril (Lisinopril), 1 TAB PO DAILY, (Reported) Rosuvastatin Calcium* (Crestor*), 1 TAB PO DAILY, (Reported) Sulfamethoxazole/Trimethoprim (Bactrim Ds Tablet), 1 TAB PO BID, (Reported) Venlafaxine Hcl (Venlafaxine Hcl Er), 1 CAP PO DAILY, (Reported) Scheduled PRN Acetaminophen (Tylenol Extra Strength), 1 TABLET PO DAILY PRN for pain, (Reported) Oxycodone HCl/Acetaminophen (Percocet 10-325 mg Tablet), 1 TAB PO Q12H PRN PRN for pain Discontinued Medications Carvedilol (Carvedilol), 2 TAB PO Q12H, (Reported) Discontinued Reason: Prescription changed Past Medical History Past Medical History: High Cholesterol Past Surgical History: noncontributory Patient History: Patient reports no known family medical history. Alcohol Use: None Drug Use: none Lives In: Home Occupation: retired Review of Systems All Other Systems at this time: Reviewed and Negative Physical Exam Vital Signs: RN Vital Signs have been reviewed: Yes, Temperature: 97.8, Source: Oral, Heart Rate: 78, Respiratory Rate: 14, BP: 140/77, Pulse Oximetry: 97, Weight: 76.700 Oxygen Flow Rate: 0 Physical Exam HEENT: PERRL, moist oral mucosa, EOMI Pulmonary: No respiratory distress Cardiac: RRR, no murmur, rub or gallop GI: R flank tenderness and RLQ tenderness, no rebound or guarding MSK: no deformity Skin: w/d/i, no rash Neuro: alert, nonfocal Psych: normal affect Progress Progress Note Leida: 8am d/w DR. Alfonso urology who spoke to her surgeon Dr. Tripp, if pain well controlled she is safe for outpatient management. If pain not well controlled can consider admission 802 assessed patient and discussed options. She does not want to stay. She is currently pain free. Tolerated PO. Plan to keep her here for 1 hour following norco and d/c if pain remains well controlled. 9am recheck remains pain free Results/Orders Results/Orders Medications Received in ER Medications (Trade) Dose Ordered Sig/Ana Route PRN Reason Start Time Stop Time Status Last Admin Dose Admin ([place] 5/325mg tablet) 2 tab ONCE ONCE PO 09/01/24 06:20 09/01/24 06:21 DC 09/01/24 06:36 2 TAB Vital Signs 08/31/24 08/31/24 09/01/24 09/01/24 23:40 23:56 00:44 01:45 Temp 97.8 Pulse 79 79 76 Resp 16 16 14 B/P (MAP) 157/67 145/77 (99) 142/72 (95) Pulse Ox 97 98 98 O2 Flow Rate 0 0 0 09/01/24 09/01/24 09/01/24 09/01/24 02:45 03:45 04:45 05:45 Pulse 72 78 76 74 Resp 14 14 16 16 B/P (MAP) 143/76 (98) 140/77 (98) 144/73 (96) 140/74 (96) Pulse Ox 98 97 98 98 O2 Flow Rate 0 0 0 0 09/01/24 09/01/24 09/01/24 06:36 08:17 09:22 Temp 98.1 Pulse 97 Resp 17 14 16 B/P (MAP) 128/87 Pulse Ox 97 Laboratory Tests Test 09/01/24 00:09 09/01/24 02:10 White Blood Count 7.7 Red Blood Count 3.75 L Hemoglobin 10.7 L Hematocrit 31.5 L Mean Corpuscular Volume 84.0 Mean Corpuscular Hemoglobin 28.5 Mean Corpuscular Hemoglobin Concent 34.0 Red Cell Distribution Width 14.5 Platelet Count 136 L Mean Platelet Volume 9.0 Neutrophils (%) (Auto) 76.9 H Lymphocytes (%) (Auto) 12.5 L Monocytes (%) (Auto) 7.2 Eosinophils (%) (Auto) 3.0 Basophils (%) (Auto) 0.4 Neutrophils # (Auto) 5.9 Lymphocytes # (Auto) 1.0 L Monocytes # (Auto) 0.6 Eosinophils # (Auto) 0.2 Basophils # (Auto) 0.0 CBC Comment Sodium Level 133 L Potassium Level 4.3 Chloride Level 102 Carbon Dioxide Level 20.6 L Anion Gap 10 Blood Urea Nitrogen 17 Creatinine 1.22 H Estimated GFR/1.73 m2 42 BUN/Creatinine Ratio 13.9 Glucose Level 107 H Calcium Level 8.9 Total Bilirubin 0.4 Aspartate Amino Transf (AST/SGOT) 64 H Alanine Aminotransferase (ALT/SGPT) 86 H Alkaline Phosphatase 155 H Total Protein 6.9 Albumin 3.5 Globulin 3.4 Albumin/Globulin Ratio 1.0 L Chemistry Comments Urine Specimen Description Cln catch midstream Urine Color Brown Urine Clarity Cloudy Urine pH Urine Specific Bruner Urine Protein Urine Glucose (UA) Urine Ketones Urine Occult Blood Urine Nitrite Urine Bilirubin Urine Urobilinogen Urine Leukocyte Esterase Urine RBC Tntc Urine WBC 0-4 Urine Squamous Epithelial Cells Few Urine Bacteria Few Urine Culture Indicated Not ind Volume Urine Centrifuged 10 ml Urine Comment See note Medical Decision Making Findings 89 year old female with R flank pain and known stone. Workup demonstrated hematuria and CT scan demonstrating hydronephrosis of R kidney 2/2 1.9cm obstructing stone. Will page urologist and hand off patient to oncoming ER physician for disposition. Additional Comments Ddx = pyelonephritis, kidney stone, cystitis, hemorrhagic cystitis Departure Disposition: 01 HOME / SELF CARE / HOMELESS Admission Level of Care: Med/Surg Impression: Primary Impression: Obstruction of right kidney Additional Impression: Kidney stone Condition: Stable Discharge Instructions: Kidney Stones Additional Instructions: Please call your urologist today. Return for any reoccurence of your pain or fever. Referrals: NO PRIMARY CARE PROVIDER (PCP) Prescriptions Oxycodone HCl/Acetaminophen (Percocet 10-325 mg Tablet) 10 Mg-325 Mg Tablet 1 TAB PO Q12H PRN PRN for pain for 5 Days, #10 TAB 0 Refills Prov: MARCO HOGAN GAMB CUTTER 09/01/24 Education Educated: Patient, Family Educated regarding: diagnosis, treatment, prognosis, need for follow up Signature Scribe Signature: . Attestation: . MIKA CARRENO MD Sep 01, 2024 05:47 BERTRAND PRITCHETT MD Sep 01, 2024 08:03
[2024-09-01] MEDS: HYDROcodone/acetaminophen 5mg/325mg tablet PO ONE (06:36)
[2024-09-01] MEDS ORDERED: OXYC-150 PO (09:16)
[2024-09-01 09:22] VITALS: BP 128/87; PULSE 97; RESP 16; TEMP 98.1; O2SAT 97
== END 2024-09-01 09:25 | disposition home or self-care (01) ==
LOC: ER 23:35
DX: N13.2 Hydronephrosis with renal and ureteral calculous obstruction (principal); E78.00 Pure hypercholesterolemia, unspecified; Z88.1 Allergy status to other antibiotic agents; Z95.2 Presence of prosthetic heart valve; Z79.82 Long term (current) use of aspirin; Z79.899 Other long term (current) drug therapy
CPT/HCPCS: 36415; 74178; 80053; 81001; 85025; 99285; Q9967